=== PATIENT | female | born 1990 | race Caucasian/White ===

== ENCOUNTER 2016-06-26 18:54 | Emergency (ER) | payer BC ==
[~2016-06-26] VITALS: Ht 157.5 cm; Wt 56.7 kg
[2016-06-26 19:00] VITALS: BP 155/71; PULSE 72; RESP 14; TEMP 98.3; O2SAT 98
--- NOTE | 2016-06-26 19:00 | NUR ---
Patient to ER bed 7 to gown for evaluation. Side rails up. Report given to SANDRA Broderick.
--- NOTE | 2016-06-26 19:14 | NUR ---
ER JOVAN Vanessa at bedside examining patient.
--- NOTE | 2016-06-26 19:15 | NUR ---
Kailyn araujo in ED - 06/26/16 at 1916 by [email or web address] Patient to bed 7 to [facility] for evaluation. Side rails up. Assumed care of pt.
--- NOTE | 2016-06-26 19:22 | NUR ---
Pt. states she is 8 weeks . Urine preg +
--- NOTE | 2016-06-26 19:23 | NUR ---
Pt. presented to ED with c/o RLQ and LLQ abdominal pain since friday. Pt. states 05/10 pain at this time. -n/v, -bleeding, -constipation, -diarrhea
[2016-06-26 19:47] LABS: CREATININE 0.66 mg/dL (0.55-1.30); POTASSIUM 3.7 mmol/L (3.5-5.1)
[2016-06-26 19:49] LABS: BILIRUBIN,URINE NEGATIVE (NEGATIVE); BLOOD, URINE NEGATIVE (NEGATIVE); CLARITY/URINE CLEAR (CLEAR); COLOR,URINE YELLOW (YELLOW); GLUCOSE,URINE NEGATIVE (NEGATIVE); KETONES,URINE TRACE (NEGATIVE); LEUKOCYTE ESTERASE ,URINE NEGATIVE (NEGATIVE); NITRITE, URINE NEGATIVE (NEGATIVE); PROTEIN URINE NEGATIVE (NEGATIVE); UROBILINOGEN,URINE 0.2 (0.2-1.0)
--- NOTE | 2016-06-26 19:58 | NUR ---
Pt. to US
[2016-06-26 20:01] LABS: BASOPHILS # (AUTO) 0.1 K/uL (0.0-0.2); BASOPHILS % (AUTO) 0.7 % (0.0-2.0); EOSINOPHILS # (AUTO) 0.1 K/uL (0.0-0.4); EOSINOPHILS % (AUTO) 0.7 % (0.0-4.0); HEMATOCRIT 36.4 % (36-48); HEMOGLOBIN 12.3 g/dL (12.0-16.0); LYMPHOCYTES # (AUTO) 2.9 K/uL (1.0-5.5); LYMPHOCYTES % (AUTO) 33.1 % (20.5-51.5); MEAN CORPUSCULAR HEMOGLOBIN 28 pg (27-31); MEAN CORPUSCULAR HGB CONC 34 % (32-36); MEAN CORPUSCULAR VOLUME 83 fL (79.0-98.0); MONOCYTES # (AUTO) 0.5 K/uL (0.0-1.0); MONOCYTES % (AUTO) 5.5 % (1.7-9.3); PLATELET COUNT (AUTO) 317 K/uL (130-430); RED BLOOD CELL COUNT(AUTO) 4.41 MIL/uL (4.2-6.2); RED CELL DISTRIBUTION WIDTH 16.4 % (9.0-15.0); WHITE BLOOD COUNT (AUTO) 8.6 K/uL (4.8-10.8)
[2016-06-26 20:09] LABS: ALBUMIN 3.7 g/dL (3.4-4.8); TOTAL BILIRUBIN 0.3 mg/dL (0.0-1.0)
--- NOTE | 2016-06-26 20:27 | NUR ---
Pt. back from US. Mikaela CORPORATE QUALITY ASSURANCE MANAGER at bedside.
[2016-06-26 20:48] VITALS: BP 104/69; PULSE 69; RESP 19; TEMP 98.3; O2SAT 98
--- NOTE | 2016-06-26 20:48 | NUR ---
Patient given written and verbal discharge instructions by Mikaela ALDANA and verbalizes understanding. ER SENIOR PACKAGING ENGINEER discussed with patient the results and treatment provided. Patient in stable condition. ID arm band removed. No Rx given. Patient educated on pain management and to follow up with PMD. Pain Scale 0/10. Opportunity for questions provided and answered.
== END 2016-06-26 20:48 | disposition home or self-care (01) ==
LOC: SED 18:54
DX: O26.891 Other specified pregnancy related conditions, first trimester (principal); R10.31 Right lower quadrant pain; R35.0 Frequency of micturition
CPT/HCPCS: 36415; 76801; 76817; 80053; 81003; 81025; 83605; 83690-TC; 84702-TC; 85025; 99285

== ENCOUNTER 2017-02-16 21:30 | Inpatient (IN) | payer BC ==
[~2017-02-16] VITALS: Ht 157.5 cm; Wt 77.1 kg
[2017-02-16] MEDS ORDERED: LR 1,000 ML IV ONE (22:28)
[2017-02-16] MEDS ORDERED: NALBUPHINE HCL 10 MG/ML AMP IVP PRN (22:30)
[2017-02-16] MEDS ORDERED: TERBUTALINE SULFATE 1 MG/ML VIAL SUBCUT ONE (22:30)
[2017-02-16 22:57] LABS: BASOPHILS # (AUTO) 0.1 K/uL (0.0-0.2); BASOPHILS % (AUTO) 0.5 % (0.0-2.0); EOSINOPHILS % (AUTO) 0.3 % (0.0-4.0); HEMATOCRIT 30.9 % (36-48); HEMOGLOBIN 9.6 g/dL (12.0-16.0); LYMPHOCYTES # (AUTO) 2.5 K/uL (1.0-5.5); MEAN CORPUSCULAR HEMOGLOBIN 23 pg (27-31); MEAN CORPUSCULAR HGB CONC 31 % (32-36); MEAN CORPUSCULAR VOLUME 73 fL (79.0-98.0); MONOCYTES # (AUTO) 0.7 K/uL (0.0-1.0); MONOCYTES % (AUTO) 5.9 % (1.7-9.3); NEUTROPHILS # (AUTO) 7.9 K/uL (1.8-7.7); NEUTROPHILS % (AUTO) 71.3 % (40.0-70.0); PLATELET COUNT (AUTO) 315 K/uL (130-430); RED BLOOD CELL COUNT(AUTO) 4.22 MIL/uL (4.2-6.2); RED CELL DISTRIBUTION WIDTH 17.1 % (9.0-15.0); WHITE BLOOD COUNT (AUTO) 11.2 K/uL (4.8-10.8)
[2017-02-16 23:36] VITALS: BP_SYST 126
[2017-02-16] MEDS: LR 1,000 ML IV SCH (23:48)
[2017-02-17] MEDS ORDERED: FENT2mCg/mL-ROPIVA0.2%/NS EPID 150 ML EP ONE (02:19)
[2017-02-17] MEDS ORDERED: fentaNYL CITRATE/PF 100 MCG/2 ML AMP ONE (02:19)
[2017-02-17] MEDS ORDERED: LR 500 ML IV ONE (03:06)
[2017-02-17] MEDS: LR 1,000 ML IV SCH (03:11)
[2017-02-17] MEDS ORDERED: fentaNYL CITRATE/PF 100 MCG/2 ML AMP EP ONE (03:15)
[2017-02-17] MEDS ORDERED: FENT2mCg/mL-ROPIVA0.2%/NS EPID 150 ML EP SCH (03:15)
[2017-02-17] MEDS ORDERED: ePHEDrine sulfate 50 MG/ML VIAL IVP PRN (03:15)
[2017-02-17] MEDS ORDERED: OXYTOCIN/NORMAL SALINE 1,000 ML IV SCH ×2 (05:48→07:00)
[2017-02-17] MEDS ORDERED: OXYTOCIN/NORMAL SALINE 1,000 ML IV ONE (05:48)
[2017-02-17] MEDS ORDERED: HYDROCORTISONE 0.5%, 28.35 GM TOPICAL CREAM TP PRN (06:00)
[2017-02-17] MEDS ORDERED: DERMOPLAST SPRAY TP PRN (06:00)
[2017-02-17] MEDS ORDERED: ANUSOL 1 EA SUPP.RECT (PREPARATION H) RC PRN (06:00)
[2017-02-17] MEDS ORDERED: HYDROcodone/ACETAMIN 5-325 MG TAB (NORCO/ VICODIN) PO PRN (06:00)
[2017-02-17] MEDS ORDERED: OXYCODONE/ACETAMINOPHEN 5-325 TABLET PO PRN ×2 (06:00)
[2017-02-17] MEDS ORDERED: SENNOSIDES/DOCUSATE SODIUM 1 TAB TABLET(SENOKOT-S) PO PRN (06:00)
[2017-02-17] MEDS ORDERED: GLYCERIN/WITCH HAZEL (TUCKS PADS) TP PRN (06:00)
[2017-02-17] MEDS ORDERED: METHYLERGONOVINE MALEATE 0.2 MG TABLET PO PRN (06:00)
[2017-02-17] MEDS ORDERED: LANOLIN 7 GM OINT. TP PRN (06:00)
[2017-02-17] MEDS ORDERED: DOCUSATE SODIUM 100 MG CAPSULE PO PRN (06:00)
[2017-02-17] MEDS: IBUPROFEN 600 MG TABLET PO SCH ×3 (06:14→17:35)
[2017-02-17] MEDS ORDERED: ROPIVACAINE 40 MG/20 ML AMP EP ONE (16:50)
[2017-02-17] MEDS ORDERED: TEMAZEPAM 15 MG CAPSULE PO PRN (21:00)
[2017-02-18] MEDS: IBUPROFEN 600 MG TABLET PO SCH ×3 (00:15→12:32)
[2017-02-18 07:39] LABS: BASOPHILS # (AUTO) 0.1 K/uL (0.0-0.2); BASOPHILS % (AUTO) 0.6 % (0.0-2.0); EOSINOPHILS # (AUTO) 0.1 K/uL (0.0-0.4); EOSINOPHILS % (AUTO) 0.9 % (0.0-4.0); HEMATOCRIT 25.3 % (36-48); HEMOGLOBIN 7.9 g/dL (12.0-16.0); LYMPHOCYTES # (AUTO) 2.9 K/uL (1.0-5.5); LYMPHOCYTES % (AUTO) 27.2 % (20.5-51.5); MEAN CORPUSCULAR HEMOGLOBIN 23 pg (27-31); MEAN CORPUSCULAR HGB CONC 31 % (32-36); MEAN CORPUSCULAR VOLUME 74 fL (79.0-98.0); MONOCYTES # (AUTO) 0.6 K/uL (0.0-1.0); MONOCYTES % (AUTO) 5.2 % (1.7-9.3); NEUTROPHILS # (AUTO) 7.1 K/uL (1.8-7.7); NEUTROPHILS % (AUTO) 66.1 % (40.0-70.0); PLATELET COUNT (AUTO) 266 K/uL (130-430); RED BLOOD CELL COUNT(AUTO) 3.43 MIL/uL (4.2-6.2); RED CELL DISTRIBUTION WIDTH 17.2 % (9.0-15.0); WHITE BLOOD COUNT (AUTO) 10.8 K/uL (4.8-10.8)
[2017-02-18] MEDS ORDERED: HYDROCORTISONE 0.5%, 28.35 GM TOPICAL CREAM TP ONE (16:54)
== END 2017-02-18 15:00 | disposition home or self-care (01) | DRG 775 ==
LOC: SPU 21:30 → OBSVTOIN 22:10
PROVIDERS: ADMIT Obstetrics & Gynecology; ATTEND Obstetrics & Gynecology
PROC: 10E0XZZ Delivery of Products of Conception, External Approach (ICD-10-PCS; principal; 2017-02-17)
PROC: 0KQM0ZZ Repair Perineum Muscle, Open Approach (ICD-10-PCS; 2017-02-17)
PROC: 3E0R3BZ Introduction of Anesthetic Agent into Spinal Canal, Percutaneous Approach (ICD-10-PCS; 2017-02-17)
PROC: 00HU33Z Insertion of Infusion Device into Spinal Canal, Percutaneous Approach (ICD-10-PCS; 2017-02-17)
DX: O99.324 Drug use complicating childbirth (principal); F12.10 Cannabis abuse, uncomplicated; O70.1 Second degree perineal laceration during delivery; Z3A.39 39 weeks gestation of pregnancy; Z37.0 Single live birth
CPT/HCPCS: 36415; 81002-TC; 85025; 86592; 86886; 86900; 86901; G0378; J2590; J2795; J3010; J7120